=== PATIENT | male | born 1960 | race Caucasian/White ===

== ENCOUNTER 2020-12-26 16:16 | Inpatient (IN) | payer OTHER ==
[~2020-12-26] VITALS: Ht 180.3 cm; Wt 113.5 kg
[~2020-12-26 16:16] MED LIST: NAPR-514 PO; TRAM50TA PO
--- NOTE | 2020-12-26 16:43 | RAD ---
EXAM: Chest, single view. HISTORY: Covid 19. COMPARISON: None. FINDINGS: A frontal view of the chest is obtained. There is right upper and left lower lobe opacity l ikely due to multifocal interstitial infiltrate. There is no pleural effusion or pneumothorax. The he art is normal in size. IMPRESSION: Suspected right upper and left lower lobe interstitial infiltrate. Electronically signed by: Lacy Dong MD (12/26/2020 4:40 PM) [id number]
[2020-12-26 16:57] LABS: BASO % 0 % (0-3); EOS % 0 % (0-3); HEMATOCRIT 46.4 % (39.0-53.0); HEMOGLOBIN 15.8 g/dL (13.0-17.5); LYMPH # 0.8 x10^3/uL (1.0-4.8); LYMPH % 12 % (24-48); MEAN CORPUSCULAR HEMOGLOBIN 29 pg (25-35); MEAN CORPUSCULAR HGB CONC 34 g/dL (31-37); MEAN CORPUSCULAR VOLUME 86 fL (79-100); MONO # 0.5 x10^3/uL (0.0-1.1); MONO % 7 % (0-9); NEUT # 5.4 x10^3uL (1.8-7.7); NEUT % 81 % (31-73); PLATELET COUNT 167 x10^3/uL (140-400); RED BLOOD COUNT 5.42 x10^6/uL (4.30-5.70); WHITE BLOOD COUNT 6.6 x10^3/uL (4.0-11.0)
[2020-12-26 16:58] LABS: CALCIUM 8.4 mg/dL (8.5-10.1); CREATININE 0.9 mg/dL (0.7-1.3); GFR 86.1; POTASSIUM 4.5 mmol/L (3.5-5.1)
--- NOTE | 2020-12-26 16:59 | PHYS DOC ---
Past History Past Medical History: No Pertinent History Past Surgical History: Appendectomy, Tonsillectomy, Other Alcohol Use: None Drug Use: None General Adult EDM: Chief Complaint: SHORTNESS OF BREATH HPI: HPI: 60-year-old male presents with shortness of breath and wound on his back. The patient was sent here by his primary care physician for shortness of breath. He was diagnosed with COVID-19 6 days ago. He is not feeling worse per se, but his shortness of breath does seem to be more frequent. The patient also has a cellulitis and abscess on his back that has been draining. He was treated with amoxicillin. It does not appear to be working. Patient is not sure if he has had a fever at home. He denies chest pain. Review of Systems: Review of Systems: Constitutional: Denies fever or chills Eyes: Denies change in visual acuity HENT: Denies nasal congestion or sore throat Respiratory: Cough with shortness of breath Cardiovascular: Denies chest pain or edema GI: Denies abdominal pain, nausea, vomiting, bloody stools or diarrhea : Denies dysuria Musculoskeletal: Denies back pain or joint pain Integument: Cellulitis and abscess of the skin back Neurologic: Denies headache, focal weakness or sensory changes Endocrine: Denies polyuria or polydipsia Lymphatic: Denies swollen glands Psychiatric: Denies depression or anxiety Allergies: Allergies: Allergies Coded Allergies Type Severity Reaction Last Updated Verified No Known Drug Allergies 08/08/15 No Physical Exam: PE: Constitutional: Well developed, well nourished, no acute distress, non-toxic appearance. [] HENT: Normocephalic, atraumatic, bilateral external ears normal, oropharynx moist, no oral exudates, nose normal. [] Eyes: PERRLA, EOMI, conjunctiva normal, no discharge. [] Neck: Normal range of motion, no tenderness, supple, no stridor. [] Cardiovascular: Heart rate 105, regular rhythm, no murmur [] Lungs & Thorax: Bilateral breath sounds coarse and diminished [] Abdomen: Bowel sounds normal, soft, no tenderness, no masses, no pulsatile masses. [] Skin: 5 cm erythematous, warm cellulitis with central spontaneous draining abscess. [] Back: No tenderness, no CVA tenderness. [] Extremities: No tenderness, no cyanosis, no clubbing, ROM intact, no edema. [] Neurologic: Alert and oriented X 3, normal motor function, normal sensory function, no focal deficits noted. [] Psychologic: Affect normal, judgement normal, mood normal. [] Current Patient Data: Vital Signs: Vital Signs Date Time Temp Pulse Resp B/P (MAP) Pulse Ox O2 Delivery O2 Flow Rate FiO2 12/26/20 16:23 98.7 99 18 144/80 Room Air EKG: EKG: Sinus rhythm, rate 99, normal axis, no ST elevation or depression. [] Radiology/Procedures: Radiology/Procedures: [] Impressions: EXAM: Chest, single view. HISTORY: Covid 19. COMPARISON: None. FINDINGS: A frontal view of the chest is obtained. There is right upper and left lower lobe opacity likely due to multifocal interstitial infiltrate. There is n o pleural effusion or pneumothorax. The heart is normal in size. IMPRESSION: Suspected right upper and left lower lobe interstitial infiltrate. Electronically signed by: Lacy Barajas MD (12/26/2020 4:40 PM) [id number] DICTATED AND SIGNED BY: LACY BARAJAS MD DATE: 12/26/20 1640 CC: MANUEL SNELL DO; JOVANI PURI MD ~MTH0 0 Heart Score: C/O Chest Pain: No Risk Factors: Risk Factors: DM, Current or recent (<one month) smoker, HTN, HLP, family history of CAD, obesity. Risk Scores: Score 0 - 3: 2.5% MACE over next 6 weeks - Discharge Home Score 4 - 6: 20.3% MACE over next 6 weeks - Admit for Clinical Observation Score 7 - 10: 72.7% MACE over next 6 weeks - Early Invasive Strategies Course & Med Decision Making: Course & Med Decision Making Pertinent Labs and Imaging studies reviewed. (See chart for details) The patient's saturation on room air is about 90% at rest. His cellulitis is concerning. He is definitely failing the current outpatient oral treatment. I will give him vancomycin and Zosyn. I will admit him to the hospital. I spoke with Dr. Puri and he has accepted the patient for admission. [] Dragon Disclaimer: Dragon Disclaimer: This electronic medical record was generated, in whole or in part, using a voice recognition dictation system. Departure Departure: Impression: Primary Impression: COVID-19 Additional Impression: Abscess or cellulitis of back Disposition: 09 ADMITTED INPATIENT Admitting Physician: Jovani Puri Condition: STABLE Referrals: JOVANI PURI MD (PCP) MANUEL SNELL DO Dec 26, 2020 16:59
[2020-12-26] MEDS ORDERED: VANCOMYCIN 2 GM in IV NORMAL SALINE 500ML 500 ML IV ONE (17:00)
[2020-12-26] MEDS ORDERED: PIPERACILLIN/TAZOBACTAM 3.375 GM in IV NORMAL SALINE 50ML 50 ML IV ONE (17:00)
[2020-12-26] MEDS ORDERED: PIPERACILLIN/TAZOBACTAM 3.375 GM VIAL IV ONE (17:02)
[2020-12-26] MEDS ORDERED: IV NORMAL SALINE 50ML 50 ML ONE (17:02)
[2020-12-26 17:06] LABS: ALBUMIN 3.3 g/dL (3.4-5.0); ALBUMIN/GLOBULIN RATIO 0.9 (1.0-1.7); TOTAL BILIRUBIN 1.1 mg/dL (0.2-1.0); TOTAL PROTEIN 6.9 g/dL (6.4-8.2)
--- NOTE | 2020-12-27 03:06 | EKG ---
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
[2020-12-27] MEDS: LACTOBACILLUS RHAMNOSUS GG 1 CAPSULE. PO SCH ×2 (09:00→21:32)
[2020-12-27] MEDS ORDERED: levoFLOXacin PER PHARMACY 1 EACH. MC PRN (09:00)
[2020-12-27 09:20] VITALS: BP 147/89
[2020-12-27] MEDS: VANCOMYCIN PER PHARMACY MC PRN (11:41)
[2020-12-27 11:55] VITALS: BP 158/83
[2020-12-27] MEDS: VANCOMYCIN 1.75 GM in IV NORMAL SALINE 500ML 500 ML IV SCH ×2 (12:30→23:23)
[2020-12-27 16:33] VITALS: BP 151/80
--- NOTE | 2020-12-27 19:23 | HP ---
HISTORY OF PRESENT ILLNESS: The patient came in with increased shortness of breath and wound on his back. The patient notes that he has been having this problem for the last 6 days, was diagnosed with COVID-19 six days ago. The patient notes increase worse with breathing. The patient is short of breath, coughing. The patient on his lower back has also been problem. He was seen in the urgent care at [facility] and treated for this with amoxicillin. The patient otherwise does not appear to be working. The patient was admitted for further evaluation of his pneumonia and exacerbation of COPD with COVID-19 as well as cellulitis to the lower back. PAST MEDICAL HISTORY: Includes that of cellulitis and some immunizations are up-to-date. FAMILY HISTORY: Unknown. ALLERGIES: No known allergies. MEDICATIONS: Include amoxicillin 500 every 8 hours, tramadol and naproxen. SOCIAL HISTORY: The patient has about a [id number] history of smoking. Denies any hard alcohol or drug use. The patient is a full code. REVIEW OF SYSTEMS: As noted, has some fever, chills, shortness of breath. Denies any melena, hematochezia or hematemesis and neurologically baseline there. PHYSICAL EXAMINATION: GENERAL: Pleasant white male. VITAL SIGNS: Blood pressure 150/80, respiratory 18, pulse 80, afebrile. The patient is alert and oriented. HEENT: The patient's head was atraumatic, normocephalic. Eyes: PERRLA without jaundice. The mouth and throat were normal. NECK: Supple. LUNGS: Diminished throughout, poor movement of air. Both inspiratory and expiratory wheezes were noted. CARDIOVASCULAR: Regular sinus rhythm. ABDOMEN: Soft, nontender, no rebound or guarding. Positive bowel sounds, no hepatosplenomegaly was noted. EXTREMITIES: No clubbing, cyanosis, nor edema. BACK: The patient had his lower back on the right side, has about a 4-5 cm crusted area with pus coming out of it. The patient notes some discomfort to that area. The patient otherwise showed an oxygen saturation of 91, but that was with 4-4.5 liters of oxygen, blood pressure 158/83, respiratory 20, pulse 80, afebrile. Presently the patient's head was atraumatic, normocephalic. Eyes: PERRLA without jaundice. The mouth and throat were normal as noted above. In any case, the patient was admitted for further evaluation. White count was unremarkable. Chemistries showed an elevated C-reactive protein of 43, albumin of 3.3. Lactic acid 1.5. The patient otherwise continued to be monitored carefully, make further evaluation on him. IMPRESSION: COVID-19 with acute respiratory distress, pneumonia secondary to COVID-19 and cellulitis to the lower back. Culture and sensitivity pending and make further evaluation on him as indicated per those results. Aggressive pulmonary toilet, IV antibiotic therapy for both areas. LY DR: Pedro Pablo TID: [id number]
[2020-12-27 20:22] VITALS: BP 153/79
[2020-12-27 23:43] VITALS: BP 133/77
[2020-12-28 06:07] VITALS: BP 132/71
[2020-12-28] MEDS: LACTOBACILLUS RHAMNOSUS GG 1 CAPSULE. PO SCH ×2 (08:07→20:34)
[2020-12-28] MEDS ORDERED: ENOXAPARIN ** NOTE DOSE ** SYRINGE SQ SCH (09:00)
[2020-12-28] MEDS ORDERED: IPRATRPIUM/ALBUTEROL 0.5/2.5MG 3 ML NEBU. NEB SCH (09:15)
[2020-12-28] MEDS ORDERED: AZITHROMYCIN 250 MG TABLET. PO ONE (09:15)
[2020-12-28] MEDS: DEXAMETHASONE SOD PHOS 10 MG/ML VIAL. IV SCH ×3 (10:32→20:34)
[2020-12-28] MEDS: ENOXAPARIN 40 MG/0.4 ML SYRINGE. SQ SCH (10:32)
[2020-12-28] MEDS: VANCOMYCIN 1.75 GM in IV NORMAL SALINE 500ML 500 ML IV SCH ×2 (10:33→23:26)
[2020-12-28 11:08] VITALS: BP 148/77
[2020-12-28 11:42] LABS: VANC TR 11.1 mcg/mL (10.0-20.0)
[2020-12-28] MEDS: IPRATROPIUM/ALBUTEROL 20/100mcg/INH INHALER. INH SCH ×3 (12:31→20:35)
--- NOTE | 2020-12-28 14:17 | RAD ---
XR CHEST 1V 12/28/2020 1:43 PM INDICATION: Shortness of air, fever COMPARISON: 12/26/2020 TECHNIQUE: Portable frontal view of the chest is provided. FINDINGS: The cardiomediastinal silhouette is within normal limits. Increasing patchy opacity in the right uppe r lobe suspicious for pulmonary infiltrate in appropriate clinical setting. Hazy attenuation the left lung base may represent atelectasis and/or infiltrate.. There are no significant pleural effusions. There is no pulmonary vascular congestion. No pneumothora x. No suspicious osseous abnormality. IMPRESSION: There is increasing opacity in the right upper lobe suspicious for pulmonary infiltrate in appropriat e clinical setting. Increased opacity at the left lung base may represent atelectasis versus infiltrate. Short-term follo w-up two-view chest radiograph could be of benefit. Electronically signed by: Fatuma Reyes MD (12/28/2020 2:14 PM) [id number]
[2020-12-28 15:10] VITALS: BP 144/80
[2020-12-28] MEDS ORDERED: DEXTROSE 50% 25 GM / 50ML DISP.SYRIN. IV PRN (16:45)
[2020-12-28] MEDS: INSULIN LISPRO 300 UNITS/3 ML VIAL. SQ SCH (17:22)
[2020-12-28] MEDS: VANCOMYCIN PER PHARMACY MC PRN (17:32)
[2020-12-28 20:03] VITALS: BP 133/73
[2020-12-28] MEDS: traMADol 50 MG TABLET PO PRN (20:35)
[2020-12-28] MEDS ORDERED: VANCOMYCIN 1 GM VIAL. ONE (23:00)
[2020-12-28] MEDS ORDERED: IV NORMAL SALINE 500ML 500 ML ONE (23:00)
[2020-12-28 23:53] VITALS: BP 118/73
--- NOTE | 2020-12-29 01:44 | PN ---
SUBJECTIVE: A 60-year-old gentleman in with COVID-19 pneumonia, acute respiratory failure and cellulitis to his lower back. The patient is still short of breath, drops down to 86% on room air, only 92-95% with the breathing treatments and some Decadron. OBJECTIVE: VITAL SIGNS: Blood pressure 144/80, respiratory rate 20, pulse 80, afebrile. The patient is presently afebrile. He had been up to 100.6 in the last 24 hours. GENERAL: The patient is otherwise alert and oriented. LUNGS: Diminished, coarse breath sounds throughout. CARDIOVASCULAR: Regular sinus rhythm. ABDOMEN: Soft, nontender, otherwise. EXTREMITIES: No clubbing, cyanosis or edema. NEUROLOGIC: Intact. The patient's repeat chest x-ray shows possible increased opacity in the left lobe, may have to change some of his antibiotics around to meet the needs of this individual's increase in pneumonia. The patient's sugar is 168. Vancomycin levels are being monitored for his back, which shows on the Gram stain for the back shows Staphylococcus aureus, probably sensitive to the vancomycin. ASSESSMENT AND PLAN: He has COVID-19 pneumonia, acute respiratory failure, cellulitis to the lower back. He is on remdesivir and dexamethasone. We will continue on present drug regimen and make further evaluation on him as indicated. ELISEO DR: Pedro Pablo TID: [id number]
[2020-12-29 05:47] VITALS: BP 129/71
[2020-12-29 05:59] LABS: BASO % 1 % (0-3); EOS % 0 % (0-3); HEMATOCRIT 41.5 % (39.0-53.0); LYMPH # 0.8 x10^3/uL (1.0-4.8); LYMPH % 13 % (24-48); MEAN CORPUSCULAR HEMOGLOBIN 29 pg (25-35); MEAN CORPUSCULAR HGB CONC 34 g/dL (31-37); MEAN CORPUSCULAR VOLUME 86 fL (79-100); MONO # 0.5 x10^3/uL (0.0-1.1); MONO % 8 % (0-9); NEUT % 79 % (31-73); PLATELET COUNT 209 x10^3/uL (140-400); RED BLOOD COUNT 4.84 x10^6/uL (4.30-5.70); RED CELL DISTRIBUTION WIDTH 14.8 % (11.5-14.5); WHITE BLOOD COUNT 6.3 x10^3/uL (4.0-11.0)
[2020-12-29 06:10] LABS: CALCIUM 7.7 mg/dL (8.5-10.1); GFR 76.2; POTASSIUM 4.1 mmol/L (3.5-5.1)
[2020-12-29 06:16] LABS: ALBUMIN 2.5 g/dL (3.4-5.0); DIRECT BILIRUBIN 0.4 mg/dL (0.0-0.2); TOTAL BILIRUBIN 0.7 mg/dL (0.2-1.0); TOTAL PROTEIN 6.3 g/dL (6.4-8.2)
[2020-12-29 06:23] LABS: % BANDS 6 % (0-9); % LYMPHS 16 % (24-48); % MONOS 6 % (0-10); % SEGS 72 % (35-66); PLT ESTIMATE ADEQUATE (ADEQUATE)
[2020-12-29] MEDS: INSULIN LISPRO 300 UNITS/3 ML VIAL. SQ SCH ×3 (08:00→18:03)
[2020-12-29] MEDS ORDERED: REMDESIVIR LOAD in IV NORMAL SALINE 250ML TV IV ONE (09:00)
[2020-12-29] MEDS: DEXAMETHASONE SOD PHOS 10 MG/ML VIAL. IV SCH ×3 (09:34→20:29)
[2020-12-29] MEDS: IPRATROPIUM/ALBUTEROL 20/100mcg/INH INHALER. INH SCH ×4 (09:34→20:28)
[2020-12-29] MEDS: LACTOBACILLUS RHAMNOSUS GG 1 CAPSULE. PO SCH ×2 (09:35→20:29)
[2020-12-29] MEDS: traMADol 50 MG TABLET PO PRN (09:35)
[2020-12-29] MEDS: AZITHROMYCIN 250 MG TABLET. PO SCH (09:35)
[2020-12-29] MEDS: ENOXAPARIN 40 MG/0.4 ML SYRINGE. SQ SCH (09:38)
[2020-12-29 11:00] VITALS: BP 129/71
[2020-12-29] MEDS: VANCOMYCIN 1.75 GM in IV NORMAL SALINE 500ML 500 ML IV SCH ×2 (11:33→20:30)
[2020-12-29] MEDS ORDERED: SODIUM CHLORIDE 0.65% NASAL SPRAY 45ML BOTTLE. NS PRN (15:30)
[2020-12-29 16:04] VITALS: BP 139/74
[2020-12-29] MEDS: BENZONATATE 100 MG CAPSULE. PO SCH ×2 (16:14→20:29)
[2020-12-29 20:27] VITALS: BP 156/73
--- NOTE | 2020-12-29 21:52 | PN ---
SUBJECTIVE: This is a 60-year-old male who is in with COVID-19 pneumonia as well as an abscess on his back. The patient in some ways says he is doing a little bit better, numbers show some mild improvement. OBJECTIVE: VITAL SIGNS: Blood pressure 129/70, respiratory rate 20, pulse 64. He is presently afebrile. Oxygen saturation 93%, but he is on 5 liters of nasal cannula. The patient is on remdesivir, Decadron, Zithromax and vancomycin. Continue to monitor the patient carefully. GENERAL: Otherwise, he is alert and oriented. Speech fluent, spontaneous, appropriate. Cranial nerves II-XII grossly intact. LUNGS: Diminished and coarse breath sounds noted throughout. CARDIOVASCULAR: Regular sinus rhythm. ABDOMEN: Soft, protuberant. EXTREMITIES: No cyanosis, clubbing or edema. NEUROLOGIC: The patient alert and oriented x3. The patient's labs are still pending and we are making headway with the progression, are trying to keep spirits up and continue with medications and breathing treatments and make further adjustments to his medications as indicated. IMPRESSION: Acute respiratory failure secondary to COVID with SARS pneumonia, severe protein malnutrition, elevated liver enzymes, abscess to the lower back, Staph aureus, severe protein malnutrition. PLAN: Continue with nutritional supplement as well as aggressive pulmonary toilet. JUANI DR: Pedro Pablo TID: [id number]
[2020-12-29 23:33] VITALS: BP 150/74
[2020-12-30 06:05] VITALS: BP 159/82
[2020-12-30] MEDS: INSULIN LISPRO 300 UNITS/3 ML VIAL. SQ SCH ×3 (08:00→16:38)
[2020-12-30] MEDS: REMDESIVIR 100mg in NORMAL SALINE 250ML X 4 DAYS IV SCH (09:01)
[2020-12-30] MEDS: LACTOBACILLUS RHAMNOSUS GG 1 CAPSULE. PO SCH ×2 (09:02→21:27)
[2020-12-30] MEDS: AZITHROMYCIN 250 MG TABLET. PO SCH (09:02)
[2020-12-30] MEDS: DEXAMETHASONE SOD PHOS 10 MG/ML VIAL. IV SCH ×3 (09:02→21:27)
[2020-12-30] MEDS: BENZONATATE 100 MG CAPSULE. PO SCH ×3 (09:02→21:27)
[2020-12-30] MEDS: IPRATROPIUM/ALBUTEROL 20/100mcg/INH INHALER. INH SCH ×4 (09:02→21:28)
[2020-12-30 09:51] VITALS: BP 151/69
[2020-12-30] MEDS: ENOXAPARIN 40 MG/0.4 ML SYRINGE. SQ SCH (10:02)
[2020-12-30] MEDS: VANCOMYCIN 1.75 GM in IV NORMAL SALINE 500ML 500 ML IV SCH ×2 (10:02→21:28)
[2020-12-30] MEDS: ACETAMINOPHEN 325 MG TABLET PO PRN ×2 (10:03→15:52)
[2020-12-30 15:21] VITALS: BP 159/82
[2020-12-30] MEDS ORDERED: ACETAMINOPHEN 325 MG TABLET PO PRN (16:45)
[2020-12-30 19:33] VITALS: BP 159/71
[2020-12-30 22:22] VITALS: BP 165/83
--- NOTE | 2020-12-31 05:44 | PN ---
SUBJECTIVE: A 60-year-old male in with COVID-19 pneumonia. The patient is resting ____ says he feels a little bit better. Does have a bad headache. He is afebrile. OBJECTIVE: VITAL SIGNS: Blood pressure 159/82, respiratory rate 20, pulse 74. He is on 5 liters at 93-91%. Receiving Combivent inhaler. He is on vancomycin for an infection in his lower back. Otherwise, he feels a little better ____. LUNGS: Diminished, but clearer than they have been, very minimal cough. HEAD: Otherwise, head was atraumatic, normocephalic. EYES: PERRLA. CARDIOVASCULAR: Regular sinus rhythm. EXTREMITIES: No clubbing or cyanosis. There is a trace edema noted. The patient says his bowels are moving. NEUROLOGIC: Stable except for his headache. No visual changes, blurred vision, double vision, no signs of weakness anywhere. He is on Lovenox. IMPRESSION: COVID-19 pneumonia. Continue on IV antibiotic therapy, remdesivir, Combivent inhaler. Acute respiratory failure as noted above. Elevated liver enzymes, hyperglycemia, moderate to severe protein malnutrition. Dietitian has talked to him. He will continue on some additional nutritional supplementation. His culture from his back has returned Staph aureus. He is on vancomycin, which he says ____ sensitive to it. LINNEA/SEGUNDO/ROSALINE DR: Pedro Pablo TID: [id number]
[2020-12-31 06:24] VITALS: BP 158/84
[2020-12-31] MEDS: INSULIN LISPRO 300 UNITS/3 ML VIAL. SQ SCH ×3 (08:00→17:00)
[2020-12-31] MEDS: IPRATROPIUM/ALBUTEROL 20/100mcg/INH INHALER. INH SCH ×4 (09:13→21:20)
[2020-12-31] MEDS: BENZONATATE 100 MG CAPSULE. PO SCH ×3 (09:14→21:18)
[2020-12-31] MEDS: DEXAMETHASONE SOD PHOS 10 MG/ML VIAL. IV SCH ×3 (09:14→21:18)
[2020-12-31] MEDS: LACTOBACILLUS RHAMNOSUS GG 1 CAPSULE. PO SCH ×2 (09:14→21:18)
[2020-12-31] MEDS: AZITHROMYCIN 250 MG TABLET. PO SCH (09:14)
[2020-12-31] MEDS: REMDESIVIR 100mg in NORMAL SALINE 250ML X 4 DAYS IV SCH (09:17)
[2020-12-31] MEDS: ENOXAPARIN 40 MG/0.4 ML SYRINGE. SQ SCH (10:42)
[2020-12-31 11:00] VITALS: BP 155/76
[2020-12-31 11:25] LABS: VANC TR 14.3 mcg/mL (10.0-20.0)
[2020-12-31] MEDS: VANCOMYCIN 1.75 GM in IV NORMAL SALINE 500ML 500 ML IV SCH ×2 (12:20→21:19)
[2020-12-31 14:53] VITALS: BP 162/86
[2020-12-31] MEDS: VANCOMYCIN PER PHARMACY MC PRN (15:46)
[2020-12-31 16:24] LABS: GFR 76.2
[2020-12-31 19:46] VITALS: BP 152/82
[2020-12-31] MEDS: ACETAMINOPHEN/CODEINE 300/30MG TABLET PO PRN (21:18)
[2020-12-31] MEDS: GABAPENTIN 100 MG CAPSULE. PO SCH (21:18)
[2020-12-31] MEDS: DICLOFENAC SODIUM 1% TOPICAL GEL 100GM TUBE. TP SCH (21:18)
[2020-12-31 23:42] VITALS: BP 147/81
--- NOTE | 2021-01-01 06:08 | PN ---
SUBJECTIVE: A 60-year-old male in with COVID-19 pneumonia, acute respiratory failure. The patient is making slow, but steady progress. The patient's oxygen saturation still on 5 liters up to 95%. Without that, he desaturates. The patient is still very weak. He has been able to sit up in a chair today. He does have problems with his feet hurting, feeling like bricks, may be a neuropathy secondary to medication or diabetes secondary to the use of the Decadron for his breathing. He is using Combivent inhaler. OBJECTIVE: VITAL SIGNS: Otherwise, his other vital signs, blood pressure 155/76, respiratory rate 22, pulse 77, afebrile. GENERAL: The patient alert and oriented. LUNGS: Diminished, better movement of air. CARDIOVASCULAR: Regular sinus rhythm, S1, S2, without murmur, rub, thrill, or extra heart sounds. ABDOMEN: Soft, nontender. No rebound or guarding. Positive bowel sounds. No hepatosplenomegaly was noted. EXTREMITIES: No clubbing, cyanosis, nor edema. NEUROLOGIC: The patient is alert and oriented, although in pain, probably 7-8/10. ASSESSMENT AND PLAN: The patient otherwise continued to be monitored carefully and make further evaluation. Continue on the remdesivir per protocol. He wants to go back home when he is ready to be discharged to make further evaluation on him there for rehabilitation. We will get his insurance to see ____ Healthcare takes care of that. Blood sugars have been under better control ____. IMPRESSION: Pneumonia secondary to COVID-19 pneumonia. He also has an abscess to his lower back. Wound care has seen that. 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 Moderate to severe protein malnutrition. Elevated liver enzymes. We will go ahead and continue to monitor patient accordingly. Continue with remdesivir and Decadron. Monitor tapering that and put him on some diclofenac for his feet pain. LINNEA/DENIS/CONNER DR: LINNEA/ted TID: [id number]
[2021-01-01 06:24] VITALS: BP 151/79
[2021-01-01] MEDS: INSULIN LISPRO 300 UNITS/3 ML VIAL. SQ SCH ×3 (08:00→17:28)
[2021-01-01] MEDS: IPRATROPIUM/ALBUTEROL 20/100mcg/INH INHALER. INH SCH ×4 (08:43→20:55)
[2021-01-01] MEDS: DEXAMETHASONE SOD PHOS 10 MG/ML VIAL. IV SCH ×4 (08:45→20:56)
[2021-01-01] MEDS: LACTOBACILLUS RHAMNOSUS GG 1 CAPSULE. PO SCH ×2 (08:45→20:54)
[2021-01-01] MEDS: GABAPENTIN 100 MG CAPSULE. PO SCH (08:45)
[2021-01-01] MEDS: REMDESIVIR 100mg in NORMAL SALINE 250ML X 4 DAYS IV SCH (08:45)
[2021-01-01] MEDS: AZITHROMYCIN 250 MG TABLET. PO SCH (08:46)
[2021-01-01] MEDS: DICLOFENAC SODIUM 1% TOPICAL GEL 100GM TUBE. TP SCH ×3 (08:46→20:55)
[2021-01-01] MEDS: BENZONATATE 100 MG CAPSULE. PO SCH ×3 (08:46→20:54)
[2021-01-01] MEDS: ENOXAPARIN 40 MG/0.4 ML SYRINGE. SQ SCH (08:46)
[2021-01-01] MEDS ORDERED: DICLOFENAC SODIUM 1% TOPICAL GEL 100GM TUBE. TP SCH (09:00)
[2021-01-01 10:42] VITALS: BP 147/77
[2021-01-01] MEDS: VANCOMYCIN 1.75 GM in IV NORMAL SALINE 500ML 500 ML IV SCH ×2 (12:10→22:53)
[2021-01-01] MEDS: GABAPENTIN 300 MG CAPSULE. PO SCH ×2 (12:17→20:54)
--- NOTE | 2021-01-01 14:43 | RAD ---
EXAM: Chest, single view. HISTORY: Shortness of breath. COMPARISON: 12/28/2020 FINDINGS: A frontal view of the chest obtained. There is stable multifocal right upper lobe and left lower lobe predominant infiltrate. No pleural effusion or pneumothorax is seen. There is a stable pro minent cardiac silhouette. There is a right PICC with the tip in the superior vena cava. IMPRESSION: No significant change in multifocal right upper and left lower lobe predominant infiltrat e. Electronically signed by: Lacy Dong MD (01/01/2021 2:41 PM) [id number]
[2021-01-01 15:19] VITALS: BP 166/84
[2021-01-01] MEDS ORDERED: chlorproMAZINE HCL 25 MG TABLET PO PRN (18:15)
[2021-01-01 19:35] VITALS: BP 148/80
[2021-01-01] MEDS: ACETAMINOPHEN/CODEINE 300/30MG TABLET PO PRN (20:55)
[2021-01-01 21:23] LABS: BASO % 0 % (0-3); EOS % 0 % (0-3); HEMATOCRIT 42.6 % (39.0-53.0); HEMOGLOBIN 14.4 g/dL (13.0-17.5); LYMPH # 0.9 x10^3/uL (1.0-4.8); LYMPH % 6 % (24-48); MEAN CORPUSCULAR HEMOGLOBIN 29 pg (25-35); MEAN CORPUSCULAR HGB CONC 34 g/dL (31-37); MEAN CORPUSCULAR VOLUME 85 fL (79-100); MONO # 0.9 x10^3/uL (0.0-1.1); MONO % 6 % (0-9); NEUT # 12.8 x10^3uL (1.8-7.7); NEUT % 88 % (31-73); PLATELET COUNT 275 x10^3/uL (140-400); RED BLOOD COUNT 5.01 x10^6/uL (4.30-5.70); RED CELL DISTRIBUTION WIDTH 15.1 % (11.5-14.5); WHITE BLOOD COUNT 14.6 x10^3/uL (4.0-11.0)
[2021-01-01 21:33] LABS: ALBUMIN 2.7 g/dL (3.4-5.0); ALBUMIN/GLOBULIN RATIO 0.8 (1.0-1.7); CALCIUM 7.7 mg/dL (8.5-10.1); CREATININE 0.9 mg/dL (0.7-1.3); GFR 86.1; POTASSIUM 3.9 mmol/L (3.5-5.1); TOTAL BILIRUBIN 0.8 mg/dL (0.2-1.0); TOTAL PROTEIN 6.3 g/dL (6.4-8.2)
[2021-01-01 22:19] LABS: % LYMPHS 9 % (24-48); % MONOS 7 % (0-10); % SEGS 84 % (35-66)
[2021-01-01 22:20] LABS: PLT ESTIMATE ADEQUATE (ADEQUATE)
[2021-01-01 22:21] LABS: TOXIC GRANULATION SLIGHT
[2021-01-01 23:15] VITALS: BP 159/76
--- NOTE | 2021-01-02 02:29 | PN ---
SUBJECTIVE: A 60-year-old male in with COVID-19 pneumonia, respiratory failure, developed some hiccups. The patient is resting fairly comfortably, breathing a little bit easier except for the hiccups. He is still under respiratory distress. Still requiring 5 liters of oxygen and only maintaining a very low 90% oxygen saturation. The patient otherwise says he is feeling a little bit better. Obviously progress has been extremely slow. His blood pressure is still a little bit on the high side and continues to be a real problem for this young man. Otherwise, his feet seem to be doing a little bit better with the gabapentin, may increase that to help him with his hiccups as that is also used for these annoying episodes. OBJECTIVE: VITAL SIGNS: Blood pressure 147/77, respiratory 20, pulse 80, afebrile, with 5 liters 93. GENERAL: The patient is alert and oriented, still very weak appearing gentleman. LUNGS: Diminished, poor movement of air. CARDIOVASCULAR: Regular sinus rhythm, S1, S2. ABDOMEN: Soft, diffuse tenderness. No rebound or guarding. Positive bowel sounds, no hepatosplenomegaly was noted. EXTREMITIES: No clubbing, cyanosis, nor edema. NEUROLOGIC: Intact. PLAN: We will go ahead and increase his gabapentin to see if that does ____ help with his hiccups. He is still on the remdesivir. He will probably be discharged tomorrow home. He ____ where he wants to go. He does not want to go to a nursing facility, although recommended to him. He will need oxygen, breathing treatments and other devices at home. He says he can obtain all those or through our facility here arrange to have those delivered to his home. IMPRESSION AND PLAN: COVID-19 pneumonia, acute respiratory failure secondary to COVID-19, neuropathy, hiccups, essential hypertension, hyperglycemia secondary to steroid use. Continue to monitor. Taper down on the steroids and make further evaluation as we progress with this disease. LINNEA/RUIZ/DAYNE DR: LINNEA/ted TID: [id number]
[2021-01-02 05:14] VITALS: BP 142/81
[2021-01-02] MEDS: INSULIN LISPRO 300 UNITS/3 ML VIAL. SQ SCH ×2 (08:00→12:00)
[2021-01-02] MEDS: DEXAMETHASONE SOD PHOS 10 MG/ML VIAL. IV SCH (08:24)
[2021-01-02] MEDS: REMDESIVIR 100mg in NORMAL SALINE 250ML X 4 DAYS IV SCH (08:25)
[2021-01-02] MEDS: GABAPENTIN 300 MG CAPSULE. PO SCH (08:25)
[2021-01-02] MEDS: LACTOBACILLUS RHAMNOSUS GG 1 CAPSULE. PO SCH (08:25)
[2021-01-02] MEDS: BENZONATATE 100 MG CAPSULE. PO SCH (08:25)
[2021-01-02] MEDS: DICLOFENAC SODIUM 1% TOPICAL GEL 100GM TUBE. TP SCH ×2 (08:25→14:00)
[2021-01-02] MEDS: AZITHROMYCIN 250 MG TABLET. PO SCH (08:25)
[2021-01-02] MEDS ORDERED: GABA-586 PO (09:24)
[2021-01-02] MEDS ORDERED: AZIT250T6 PO (09:24)
[2021-01-02] MEDS ORDERED: BENZ-8 PO (09:24)
[2021-01-02] MEDS ORDERED: PRED-220 PO (09:24)
[2021-01-02] MEDS: ENOXAPARIN 40 MG/0.4 ML SYRINGE. SQ SCH (10:30)
[2021-01-02] MEDS: VANCOMYCIN 1.75 GM in IV NORMAL SALINE 500ML 500 ML IV SCH (11:00)
--- NOTE | 2021-01-04 02:17 | DS ---
DATE OF DISCHARGE: 01/02/2021 HOSPITAL COURSE: A 60-year-old male admitted with increased shortness of breath and COVID-19 pneumonia and acute respiratory failure. The patient had the infection approximately for 6 days before coming in, he encountered at a local fair. The patient was noted to be in acute respiratory distress with oxygen saturation in the mid to upper 80s on room air, respiratory rate was 20, blood pressure was elevated as well. As a result of this, the patient was admitted to the hospital and was treated accordingly and the patient's initial blood pressure went up to 140/82 with a pulse of 100, temperature went up to 100.6. He was on as much as 5 liters at 92%. The patient was started on remdesivir, Decadron, Zithromax and Rocephin. The patient made excellent progress during the rest of his hospitalization, did have elevated liver enzymes and serology was negative there. The patient's vancomycin levels were obtained because he was also noted to have an infection on his lower back. Wound care saw him and vancomycin levels were obtained for that as well, which turned out to be MRSA from a previous culture that was done in the office. Otherwise, the patient did have elevated AST of 114, ALT of 335 noted. The patient's sugars did go up with the Decadron. He was placed on a sliding scale and ____ Decadron was tapered off, ____ blood sugars. In any case, the patient made good progress during the rest of his hospitalization. IMPRESSION: Acute respiratory failure secondary to COVID-19 pneumonia secondary to COVID-19, elevated liver enzymes, severe protein malnutrition, hyperglycemia secondary to steroid use, cellulitis with methicillin-resistant Staphylococcus aureus to the lower back area. PLAN: The patient will continue to be monitored for his multifocal right upper and left lower lobe predominant infiltrative process. Otherwise, the patient made good progress. He will be discharged home. He will be kept on a regular diet, decreased activity, placed on Eliquis 5 b.i.d., oxygen will be delivered at least what was instructed to be delivered to the home before the patient got there, but apparently was not. Otherwise, he will be continued to be monitored carefully obviously. Home health has been ordered. We will continue to monitor him as an outpatient. LINNEA/RUIZ/DAYNE DR: LINNEA/ted TID: [id number]
== END 2021-01-02 14:50 | disposition home or self-care (01) | DRG 177 ==
LOC: ER 16:16 → 1 SOUTH 12-27 07:30
PROVIDERS: ADMIT Family Medicine; ATTEND Family Medicine
PROC: XW033E5 Introduction of Remdesivir Anti-infective into Peripheral Vein, Percutaneous Approach, New Technology Group 5 (ICD-10-PCS; principal; 2020-12-29)
DX: U07.1 COVID-19 (principal); E43 Unspecified severe protein-calorie malnutrition; J12.82 Pneumonia due to coronavirus disease 2019; J96.00 Acute respiratory failure, unspecified whether with hypoxia or hypercapnia; J44.0 Chronic obstructive pulmonary disease with (acute) lower respiratory infection; J44.1 Chronic obstructive pulmonary disease with (acute) exacerbation; L02.212 Cutaneous abscess of back [any part, except buttock and flank]; L03.312 Cellulitis of back [any part except buttock and flank]; E11.65 Type 2 diabetes mellitus with hyperglycemia; I10 Essential (primary) hypertension; B95.62 Methicillin resistant Staphylococcus aureus infection as the cause of diseases classified elsewhere; E11.40 Type 2 diabetes mellitus with diabetic neuropathy, unspecified; T38.0X5A Adverse effect of glucocorticoids and synthetic analogues, initial encounter; Z87.891 Personal history of nicotine dependence; Z90.49 Acquired absence of other specified parts of digestive tract; Y92.239 Unspecified place in hospital as the place of occurrence of the external cause
CPT/HCPCS: 36415; 71045; 80048; 80053; 80076; 80202; 82565; 82947; 83605; 84484; 85007; 85025; 86140; 86705; 86709; 86803; 87040; 87070; 87077; 87186; 87340; 93005; 96365; 96366; 96367; J0696; J1100; J1650; J1815; J1956; J2543; J3370; J7040; J7050; Q0161; 97110; 99285-25

== ENCOUNTER 2021-01-03 03:18 | Observation (INO) | payer OTHER ==
[~2021-01-03] VITALS: Ht 180.3 cm; Wt 115.3 kg
[~2021-01-03 03:18] MED LIST changes: +AZIT250T6 PO; +BENZ-8 PO; +GABA-586 PO; +PRED-220 PO
--- NOTE | 2021-01-03 03:25 | PHYS DOC ---
Past History Past Medical History: No Pertinent History, Bronchitis, Pneumonia Past Medical History COVID = + DX- 12/25/20 Past Surgical History: Appendectomy, Tonsillectomy, Other Alcohol Use: None Drug Use: None General Adult HPI: HPI: ".. They never brought oxygen to the house...".." My tank to go home with ran out...".." I so short of breath.." " I got COVID...".. " I wished I gotten my shot. " Patient is a 60 year old male who presents with dyspnea, hypoxia and + COVID. Patient discharged this past afternoon. Patient did not ever receive the Covid vaccination. No recent travel outside the [place] area. No specific ill contacts. No history immunosuppression. Patient returns the ED because no home oxygen. Patient follows with Dr. Puri. Patient was admitted on 12/27/2020 with a diagnosis of Covid. Patient not oxygen dependent prior to his Covid illness. Has had a 40-zvex-dpnw smoking history but no longer smokes. Patient has some cellulitis on lower back. Patient not currently maintaining sats on room air sats 80s drops to 70s with any activity. Is able to maintain on 2 L nasal cannula however Review of Systems: Review of Systems: Constitutional: History of fever or chills and malaise Eyes: Denies change in visual acuity HENT: Denies nasal congestion or sore throat Respiratory: History of cough and shortness of breath Cardiovascular: Denies chest pain or edema GI: Denies abdominal pain, nausea, vomiting, bloody stools or diarrhea : Denies dysuria Musculoskeletal: Complains of generalized myalgia and arthralgia Integument: Denies rash Neurologic: Denies headache, focal weakness or sensory changes Endocrine: Denies polyuria or polydipsia Lymphatic: Denies swollen glands Psychiatric: Denies depression or anxiety Family History: Family History: Noncontributory to presentation Current Medications: Current Meds: See nursing for home meds Allergies: Allergies: Allergies Coded Allergies Type Severity Reaction Last Updated Verified No Known Drug Allergies 08/08/15 No Physical Exam: PE: Constitutional: in acute distress, non-toxic appearance. [] HENT: Normocephalic, atraumatic, bilateral external ears normal, oropharynx moist, no oral exudates, nose swollen turbinates and clear rhinorrhea Eyes: PERRLA, EOMI, conjunctiva normal, no discharge. [] Neck: Normal range of motion, no tenderness, supple, no stridor. [] Cardiovascular: Tachycardia heart rate regular rhythm, no murmur [] Lungs & Thorax: Bilateral breath sounds equal apex with scattered crackles throughout and wheezes on auscultation [] Abdomen: Bowel sounds normal, soft, no tenderness, no masses, no pulsatile masses. Obese. Old surgical scar Skin: Warm, dry, no erythema, cellulitis lower back Back: No tenderness, no CVA tenderness. [] Extremities: No tenderness, no cyanosis, no clubbing, ROM intact, trace ankle edema. No cording appreciated Neurologic: Alert and oriented X 3, moves all extremities on request, does have distal sensory, no focal deficits noted. [] Psychologic: Affect anxious, judgement normal, mood normal. [] EKG: EKG: My interpretation of EKG shows a sinus rhythm at 92 bpm. Does have a T wave strain pattern. Abnormal EKG. Time of EKG 03 37 [] Radiology/Procedures: Radiology/Procedures: [][place] [address] IMAGING REPORT Signed PATIENT: DEBBIE REDD ACCOUNT: [id number] : 1960 LOCATION: [address] [place] [address] AGE: 60 SEX: M EXAM STATUS: ADM IN ORD. PHYSICIAN: JAMES WALLER MD REASON: dyspnea, hypoxia, Hx. + COVID PROCEDURE: PORTABLE CHEST 1V EXAM: CHEST ONE VIEW. HISTORY: Dyspnea, hypoxia, COVID-19. COMPARISON: 01/01/2021. FINDINGS: A frontal view of the chest is obtained. A right arm PICC line has its tip in the superior vena cava. Patchy bilateral airspace infiltrates are unchanged. There is no pneumothorax or pleural effusion. The heart is not enlarged. IMPRESSION: 1. Stable bilateral infiltrates consistent with atypical pneumonia. Electronically signed by: Sanjay Whatley MD (01/03/2021 6:35 AM) [facility] DICTATED AND SIGNED BY: LUCY WHATLEY MD DATE: 01/03/21 0634 CC: JOVANI PURI MD; JAMES WALLER MD ~MTH0 0 Heart Score: C/O Chest Pain: Yes HEART Score for Chest Pain: HEART Score for Chest Pain Response (Comments) Value History Moderately Suspicious 1 ECG Nonspecific Repolarizatio 1 Age >45 - < 65 1 Risk Factors 1 or 2 Risk Factors 1 Troponin < Normal Limit 0 Total 4 Risk Factors: Risk Factors: DM, Current or recent (<one month) smoker, HTN, HLP, family history of CAD, obesity. Risk Scores: Score 0 - 3: 2.5% MACE over next 6 weeks - Discharge Home Score 4 - 6: 20.3% MACE over next 6 weeks - Admit for Clinical Observation Score 7 - 10: 72.7% MACE over next 6 weeks - Early Invasive Strategies Course & Med Decision Making: Course & Med Decision Making Pertinent Labs and Imaging studies reviewed. (See chart for details) Discussed presentation, testing and treatment plan with . Will a dmit to his service. Impression: 1. Covid positive 2. COVID-19 positive test (U07.1, COVID-19) with Acute Pneumonia (J12.89, Other viral pneumonia) 3. Cellulitis 4. Respiratory failure hypoxia 5. Leukocytosis 16.5 6. Malnutrition albumin 2.8 7. Elevated D-dimer= 4.46 8. Mild elevation of AST 41 and ALT 222. [] Dragon Disclaimer: Dragon Disclaimer: This electronic medical record was generated, in whole or in part, using a voice recognition dictation system. Departure Departure: Referrals: JOVANI PURI MD (PCP) Dragon Disclaimer This chart was dictated in whole or in part using Voice Recognition software in a busy, high-work load, and often noisy Emergency Department environment. It may contain unintended and wholly unrecognized errors or omissions. Dragon Disclaimer This chart was dictated in whole or in part using Voice Recognition software in a busy, high-work load, and often noisy Emergency Department environment. It may contain unintended and wholly unrecognized errors or omissions. JAMES WALLER MD Jan 03, 2021 03:25
[2021-01-03] MEDS ORDERED: ALBUTEROL SULFATE 8GM INHALER. INH ONE (03:30)
[2021-01-03] MEDS ORDERED: IV RINGERS SOLUTION,LACTATED 1,000 ML IV SCH (03:30)
--- NOTE | 2021-01-03 03:53 | EKG ---
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
[2021-01-03 04:24] LABS: BASO % 0 % (0-3); EOS # 0.1 x10^3/uL (0.0-0.7); EOS % 1 % (0-3); HEMATOCRIT 44.3 % (39.0-53.0); HEMOGLOBIN 14.8 g/dL (13.0-17.5); LYMPH # 1.2 x10^3/uL (1.0-4.8); LYMPH % 7 % (24-48); MEAN CORPUSCULAR HEMOGLOBIN 28 pg (25-35); MEAN CORPUSCULAR HGB CONC 33 g/dL (31-37); MEAN CORPUSCULAR VOLUME 84 fL (79-100); MONO % 6 % (0-9); NEUT # 14.2 x10^3uL (1.8-7.7); NEUT % 86 % (31-73); PLATELET COUNT 279 x10^3/uL (140-400); RED BLOOD COUNT 5.25 x10^6/uL (4.30-5.70); RED CELL DISTRIBUTION WIDTH 14.6 % (11.5-14.5); WHITE BLOOD COUNT 16.5 x10^3/uL (4.0-11.0)
[2021-01-03 04:43] LABS: CALCIUM 7.9 mg/dL (8.5-10.1); CREATININE 0.9 mg/dL (0.7-1.3); GFR 86.1; POTASSIUM 3.3 mmol/L (3.5-5.1)
[2021-01-03 04:51] LABS: % BANDS 3 % (0-9); % LYMPHS 8 % (24-48); % MONOS 9 % (0-10); % SEGS 80 % (35-66); PLT ESTIMATE ADEQUATE (ADEQUATE)
[2021-01-03 04:55] LABS: ALBUMIN 2.8 g/dL (3.4-5.0); DIRECT BILIRUBIN 0.3 mg/dL (0.0-0.2); MAGNESIUM 2.3 mg/dL (1.8-2.4); TOTAL BILIRUBIN 0.9 mg/dL (0.2-1.0); TOTAL PROTEIN 6.4 g/dL (6.4-8.2)
[2021-01-03] MEDS ORDERED: ACETAMINOPHEN 325 MG TABLET PO PRN (05:30)
[2021-01-03] MEDS ORDERED: ONDANSETRON PF 4 MG/2 ML VIAL. IVP PRN (05:30)
[2021-01-03] MEDS ORDERED: ENOXAPARIN ** NOTE DOSE ** SYRINGE SQ ONE (05:30)
--- NOTE | 2021-01-03 06:37 | RAD ---
EXAM: CHEST ONE VIEW. HISTORY: Dyspnea, hypoxia, COVID-19. COMPARISON: 01/01/2021. FINDINGS: A frontal view of the chest is obtained. A right arm PICC line has its tip in the superior vena cava. Patchy bilateral airspace infiltrates are unchanged. There is no pneumothorax or pleural effusion. Th e heart is not enlarged. IMPRESSION: 1. Stable bilateral infiltrates consistent with atypical pneumonia. Electronically signed by: Sanjay Whatley MD (01/03/2021 6:35 AM) [facility]
[2021-01-03 06:47] LABS: BGAS PH 7.51 (7.35-7.46)
--- NOTE | 2021-01-03 07:00 | EKG ---
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
[2021-01-03 08:04] VITALS: BP 159/79
[2021-01-03] MEDS ORDERED: AZITHROMYCIN 250 MG TABLET. PO SCH (09:00)
[2021-01-03] MEDS ORDERED: BENZONATATE 100 MG CAPSULE. PO SCH (09:00)
[2021-01-03] MEDS ORDERED: ALBUTEROL SULFATE 8GM INHALER. INH SCH (09:00)
[2021-01-03] MEDS ORDERED: predniSONE 10 MG TABLET. PO SCH (09:00)
[2021-01-03] MEDS ORDERED: GABAPENTIN 300 MG CAPSULE. PO SCH (09:00)
[2021-01-03] MEDS ORDERED: LISINOPRIL 10 MG TABLET PO SCH (09:00)
[2021-01-03] MEDS ORDERED: traMADol 50 MG TABLET PO PRN (09:15)
--- NOTE | 2021-01-03 09:43 | HP ---
HISTORY OF PRESENT ILLNESS: A 60-year-old male recently discharged with COVID-19 pneumonia and respiratory failure. The patient went home. However, the oxygen as ordered was not delivered to the house. The one tank he had ran out and he became increasingly short of breath, came in through the Emergency Room as a result of this. Instructions have been given to the oxygen supply company that is ordered through his insurance company, they failed to deliver it and as a result of this, the patient went into respiratory distress and came in through the Emergency Room as indicated. The patient himself is doing reasonably well. Chest x-ray shows stability of the infiltrate. He is on tapering doses of prednisone as well as continuing on his azithromycin antibiotic. He says overall he is feeling fairly well overall and continues to make a reasonably good progress from his recent bout of COVID-19 pneumonia. PAST MEDICAL HISTORY: Of course includes that of acute COVID-19 pneumonia with respiratory failure. He has had possibly some developmental delay, cellulitis of his back, which is healing up very nicely. FAMILY HISTORY: Unremarkable. ALLERGIES: THE PATIENT HAS NO KNOWN ALLERGIES. SOCIAL HISTORY: Previous history of smoking in the past, but none recently. No hard drug use. Occasional alcohol use. Neurologically baseline. The patient is a full code. REVIEW OF SYSTEMS: Outside of some shortness of breath and coughing, but overall feels better. Denies chest pain, abdominal pain. Denies nausea, vomiting, headaches, visual changes or any other significant status changes except for shortness of breath. MEDICATIONS: Include albuterol, Tylenol, Zofran, prednisone taper, and Zithromax as indicated. PHYSICAL EXAMINATION: VITAL SIGNS: Include that of blood pressure 159/80, respiratory 20, pulse 85 and afebrile. Nurse's note shows heart rate of 20, which is incorrect. The patient's oxygen saturation 93% on 3 liters, which is improved overall. GENERAL: He is alert and oriented. HEENT: Head atraumatic, normocephalic. Eyes: PERRLA without jaundice. The mouth and throat were normal. NECK: Supple. No thyromegaly. LUNGS: Diminished throughout, poor movement of air. CARDIOVASCULAR: Regular sinus rhythm, S1, S2. ABDOMEN: Soft, protuberant. EXTREMITIES: No clubbing, cyanosis or edema. NEUROLOGIC: Intact. Wound on his back seems to be improving. The patient otherwise is stable. LABORATORY DATA: White count was elevated at 16,000, more or less from his prednisone use. Potassium slightly low at 3. Liver enzymes are still elevated, AST of 41, ALT of 222, elevated. The patient continued to be monitored carefully. IMPRESSION: Acute exacerbation of chronic obstructive pulmonary disease, hypoxia secondary to not having the oxygen tanks at home. Hypokalemia. Elevated D-dimer. PLAN: The patient will be put on Eliquis along with his other medications. Regular diet and continue to monitor his blood pressure and the like. May add some other medications to his drug regimen before discharge. ELISEO DR: Pedro Pablo TID: [id number]
[2021-01-03] MEDS ORDERED: APIXABAN 5 MG TABLET. PO SCH (10:00)
--- NOTE | 2021-01-08 20:15 | DS ---
DATE OF DISCHARGE: 01/03/2021 HOSPITAL COURSE: The patient is a 60-year-old male recently discharged with COVID-19 pneumonia and respiratory failure. The patient went home. However, apparently oxygen was not delivered to his home as problems by the company that supplies it as a result of this, the patient went into some respiratory distress and was brought back in the hospital for observation oxygenation as he did have COVID-19 and respiratory distress. The patient otherwise made good progress. He was stable and the oxygen was transported to his home before he made it there, so that he does not have any disruption of his medical care. IMPRESSION: Hypoxia, acute respiratory failure secondary to COVID-19 pneumonia, hypoxia as indicated. The patient has also hyperglycemia. The patient will be discharged home. Follow up as an outpatient and make further evaluation for him as indicated. JUANI DR: Pedro Pablo TID: [id number]
== END 2021-01-03 14:29 | disposition home health service (06) ==
LOC: ER 03:18 → INTOOBSV 05:43 → 1 SOUTH 05:43
PROVIDERS: ADMIT Family Medicine; ATTEND Family Medicine
DX: U07.1 COVID-19 (principal); J12.82 Pneumonia due to coronavirus disease 2019; J44.0 Chronic obstructive pulmonary disease with (acute) lower respiratory infection; J44.1 Chronic obstructive pulmonary disease with (acute) exacerbation; J96.91 Respiratory failure, unspecified with hypoxia; E87.6 Hypokalemia; E46 Unspecified protein-calorie malnutrition; L03.90 Cellulitis, unspecified; Z87.891 Personal history of nicotine dependence; Z90.49 Acquired absence of other specified parts of digestive tract
CPT/HCPCS: 36415; 36600; 71045; 80048; 80076; 82550; 82803; 83690; 83735; 83880; 84443; 84484; 85007; 85025; 85379; 85610; 85730; 93005; 94640; 96360; 96361; 99285; G0378; J7120; G0379; 94664

== ENCOUNTER 2021-10-05 23:45 | Emergency (ER) | payer OTHER ==
[~2021-10-05] VITALS: Ht 180.3 cm; Wt 122.7 kg
--- NOTE | 2021-10-06 00:19 | PHYS DOC ---
Past History Past Medical History: No Pertinent History, Bronchitis, Pneumonia Past Surgical History: Appendectomy, Tonsillectomy, Other Alcohol Use: None Drug Use: None General Adult EDM: Chief Complaint: Short of breath HPI: HPI: 60-year-old male presents with shortness of breath and chest heaviness. The patient had these feelings intermittently since around dinnertime. He felt like he was short of breath and just could not catch his air. This was accompanied by a pressure sensation in his chest. At its worst it was 8 out of 10. It is currently 2 out of 10 and he does not feel so short of breath. The patient has been having complications from COVID-19 for several months. He has significantly decreased exercise tolerance and is unable to work. Today it just got worse and he decided he should be evaluated. He even tried using an oxygen tank that he had at home but this did not make him feel less short of breath. Patient denies fever or chills. No cardiac history. Review of Systems: Review of Systems: Constitutional: Denies fever or chills Eyes: Denies change in visual acuity HENT: Denies nasal congestion or sore throat Respiratory: shortness of breath Cardiovascular: Chest pain GI: Denies abdominal pain, nausea, vomiting, bloody stools or diarrhea : Denies dysuria Musculoskeletal: Denies back pain or joint pain Integument: Denies rash Neurologic: Denies headache, focal weakness or sensory changes Endocrine: Denies polyuria or polydipsia Lymphatic: Denies swollen glands Psychiatric: Denies depression or anxiety Allergies: Allergies: Allergies Coded Allergies Type Severity Reaction Last Updated Verified No Known Drug Allergies 08/08/15 No Physical Exam: PE: Constitutional: Well developed, well nourished, morbidly obese, no acute distress, non-toxic appearance. [] HENT: Normocephalic, atraumatic, bilateral external ears normal, oropharynx moist, no oral exudates, nose normal. [] Eyes: PERRLA, EOMI, conjunctiva normal, no discharge. [] Neck: Normal range of motion, no tenderness, supple, no stridor. [] Cardiovascular: Heart rate 120, regular rhythm, no murmur [] Lungs & Thorax: Bilateral breath sounds clear to auscultation [] Abdomen: Bowel sounds normal, soft, no tenderness, no masses, no pulsatile masses. [] Skin: Warm, dry, no erythema, no rash. [] Back: No tenderness, no CVA tenderness. [] Extremities: No tenderness, no cyanosis, no clubbing, ROM intact, no edema. [] Neurologic: Alert and oriented X 3, normal motor function, normal sensory function, no focal deficits noted. [] Psychologic: Affect normal, judgement normal, mood anxious. [] Current Patient Data: Vital Signs: Vital Signs Date Time Temp Pulse Resp B/P (MAP) Pulse Ox O2 Delivery O2 Flow Rate FiO2 10/05/21 23:56 97.7 115 18 160/97 (118) 94 Room Air EKG: EKG: Sinus rhythm, rate 120, axis no ST elevation depression. [] Radiology/Procedures: Radiology/Procedures: [] Impressions: PQRS Compliance Statement: One or more of the following individualized dose reduction techniques were utilized for this examination: 1. Automated exposure control 2. Adjustment of the mA and/or kV according to patient size 3. Use of iterative reconstruction technique CT CHEST WITH CONTRAST, PULMONARY ANGIOGRAM History: Reason: SoB, Comparison: None. Technique: Helical CT of the chest was performed after the administration of 100 cc of Omnipaque 350 intravenous contrast according to PE protocol. Axial and coronal reconstructions were obtained. 3-D MIP images were constructed to better evaluate the pulmonary arteries. Findings: Pulmonary arteries are adequately opacified. There is no evidence of pulmonary embolism. There is no thoracic aortic dissection. The great vessels are normal caliber. Cannot exclude mild coronary artery disease. There is no adenopathy in the chest. The cardiac size is normal, no pericardial effusion. There is no pleural abnormality. The central airways are patent. There are peripheral linear opacities in the bilateral lungs, nonspecific. Atelectasis or infectious/inflammatory process are considerations. There is no consolidation. There is probably fatty infiltration of the visualized liver. No acute bone abnormality. Thoracic spine alignment is maintained. IMPRESSION: There is no pulmonary embolus. Electronically signed by: Merlin Hussein MD (10/06/2021 2:44 AM) [facility] DICTATED AND SIGNED BY: MERLIN HUSSEIN MD DATE: 10/06/21 0240 CC: MANUEL SNELL DO; JOVANI PURI MD ~ Heart Score: C/O Chest Pain: Yes HEART Score for Chest Pain: HEART Score for Chest Pain Response (Comments) Value History Moderately Suspicious 1 ECG Nonspecific Repolarizatio 1 Age >45 - < 65 1 Risk Factors 1 or 2 Risk Factors 1 Troponin >1-<3x Normal Limit 1 Total 5 Risk Factors: Risk Factors: DM, Current or recent (<one month) smoker, HTN, HLP, family history of CAD, obesity. Risk Scores: Score 0 - 3: 2.5% MACE over next 6 weeks - Discharge Home Score 4 - 6: 20.3% MACE over next 6 weeks - Admit for Clinical Observation Score 7 - 10: 72.7% MACE over next 6 weeks - Early Invasive Strategies Course & Med Decision Making: Course & Med Decision Making Pertinent Labs and Imaging studies reviewed. (See chart for details) Patient's labs are unremarkable except for an elevated troponin of 191. I have ordered a CT angiogram of the chest to rule out pulmonary embolus. EKG shows tachycardia but is otherwise unremarkable. The patient has been given a full- strength aspirin. His repeat 2-hour troponin is over 300. Repeat EKG is unchanged. I will seek to transfer the patient to facility with Clinical Data Programmer. The patient is comfortable with [facility]. I have spoken to Dr. Herrera and he has accepted the patient for transfer admission. I spoke with the senior administrator support, Dr. Nolasco and he is in agreement with the plan. Patient has been started on cardiovascular heparin protocol. He will transfer by ambulance. [] Shey Disclaimer: Shey Disclaimer: This electronic medical record was generated, in whole or in part, using a voice recognition dictation system. Departure Departure: Impression: Primary Impression: NSTEMI (non-ST elevated myocardial infarction) Disposition: 02 SHORT TERM HOSPITAL Condition: GUARDED Referrals: JOVANI PURI MD (PCP) MANUEL SNELL DO October 06, 2021 00:19
[2021-10-06 00:59] LABS: CALCIUM 9.1 mg/dL (8.5-10.1); CREATININE 1.1 mg/dL (0.7-1.3); GFR 68.3; POTASSIUM 4.1 mmol/L (3.5-5.1)
[2021-10-06 01:03] LABS: INFLUENZA A PATIENT NEGATIVE (NEGATIVE); INFLUENZA B PATIENT NEGATIVE (NEGATIVE)
[2021-10-06 01:04] LABS: ALBUMIN 3.8 g/dL (3.4-5.0); ALBUMIN/GLOBULIN RATIO 1.1 (1.0-1.7); TOTAL BILIRUBIN 0.4 mg/dL (0.2-1.0); TOTAL PROTEIN 7.2 g/dL (6.4-8.2)
[2021-10-06 01:24] LABS: BASO # 0.1 x10^3/uL (0.0-0.2); BASO % 1 % (0-3); EOS # 0.1 x10^3/uL (0.0-0.7); EOS % 1 % (0-3); HEMATOCRIT 44.6 % (39.0-53.0); HEMOGLOBIN 14.9 g/dL (13.0-17.5); LYMPH # 1.3 x10^3/uL (1.0-4.8); LYMPH % 14 % (24-48); MEAN CORPUSCULAR HEMOGLOBIN 28 pg (25-35); MEAN CORPUSCULAR HGB CONC 33 g/dL (31-37); MEAN CORPUSCULAR VOLUME 82 fL (79-100); MONO # 0.6 x10^3/uL (0.0-1.1); MONO % 6 % (0-9); NEUT # 7.4 x10^3uL (1.8-7.7); NEUT % 79 % (31-73); PLATELET COUNT 229 x10^3/uL (140-400); RED BLOOD COUNT 5.42 x10^6/uL (4.30-5.70); RED CELL DISTRIBUTION WIDTH 15.3 % (11.5-14.5); WHITE BLOOD COUNT 9.4 x10^3/uL (4.0-11.0)
[2021-10-06] MEDS ORDERED: IOHEXOL 350 MG/ML 100 ML VIAL. ONE (01:29)
[2021-10-06] MEDS ORDERED: CONTRAST GIVEN. MC PRN (01:30)
[2021-10-06] MEDS ORDERED: NITROGLYCERIN SUBLINGUAL 0.4 MG BOTTLE OF 25. SL PRN (02:00)
[2021-10-06] MEDS ORDERED: IOHEXOL 350 MG/ML 100 ML VIAL. IV ONE (02:00)
--- NOTE | 2021-10-06 02:07 | RAD ---
XR CHEST 1V Clinical Indication: Reason: cough / Spl. Instructions: / History: Comparison: AP chest January 03, 2021. Findings: The cardiomediastinal silhouette is normal. Lungs are clear. There is no pneumothorax. No pleural eff usion is appreciated. No acute bone abnormality. IMPRESSION: No acute cardiopulmonary process. Electronically signed by: Merlin Hussein MD (10/06/2021 2:05 AM) [facility]PITALSergey
[2021-10-06] MEDS ORDERED: ASPIRIN CHEWABLE 81 MG TABLET. PO ONE (02:30)
--- NOTE | 2021-10-06 02:47 | RAD ---
PQRS Compliance Statement: One or more of the following individualized dose reduction techniques were utilized for this examinat ion: 1. Automated exposure control 2. Adjustment of the mA and/or kV according to patient size 3. Use of iterative reconstruction technique CT CHEST WITH CONTRAST, PULMONARY ANGIOGRAM History: Reason: SoB, Comparison: None. Technique: Helical CT of the chest was performed after the administration of 100 cc of Omnipaque 350 intravenous contrast according to PE protocol. Axial and coronal reconstructions were obtained. 3- D MIP images were constructed to better evaluate the pulmonary arteries. Findings: Pulmonary arteries are adequately opacified. There is no evidence of pulmonary embolism. There is no thoracic aortic dissection. The great vessels are normal caliber. Cannot exclude mild cor onary artery disease. There is no adenopathy in the chest. The cardiac size is normal, no pericardial effusion. There is no pleural abnormality. The central airways are patent. There are peripheral linear opacitie s in the bilateral lungs, nonspecific. Atelectasis or infectious/inflammatory process are considerati ons. There is no consolidation. There is probably fatty infiltration of the visualized liver. No acute bone abnormality. Thoracic spine alignment is maintained. IMPRESSION: There is no pulmonary embolus. Electronically signed by: Merlin Hussein MD (10/06/2021 2:44 AM) [facility]
[2021-10-06] MEDS ORDERED: HEPARIN for IV BOLUS 10,000 UNIT/10 ML VIAL. IV PRN (03:15)
[2021-10-06] MEDS ORDERED: HEPARIN 25,000UTS/250ML PREMIX 250 ML IV PRN (03:15)
--- NOTE | 2021-10-06 03:18 | EKG ---
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
--- NOTE | 2021-10-06 03:19 | EKG ---
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
[2021-10-06] MEDS ORDERED: HEPARIN for IV BOLUS 10,000 UNIT/10 ML VIAL. IV ONE (03:30)
[2021-10-06] MEDS ORDERED: ANTI-COAG MONITOR BY PHARMACY. MC PRN (03:30)
[2021-10-06 04:32] VITALS: BP 159/98
== END 2021-10-06 05:00 | disposition short-term general hospital (02) ==
LOC: ER 23:45
DX: I21.4 Non-ST elevation (NSTEMI) myocardial infarction (principal); Z20.822 Contact with and (suspected) exposure to COVID-19
CPT/HCPCS: 36415; 71045; 71275; 80053; 84484; 85025; 85610; 85730; 87426; 87428; 93005; 96365; 96376; 99285; C9803; J1644; Q9967; U0003; 96361; 96375